=== PATIENT | male | born 1975 | race Caucasian/White ===

== ENCOUNTER 2017-11-28 17:49 | Emergency (ER) | payer MEDICAID, OTHER ==
[2017-11-28 18:12] VITALS: BP 134/76
--- NOTE | 2017-11-28 18:32 | ED ---
GI/ HPI - HPI Summary HPI Summary: 42 yr old with NVD. Onset on Tuesday morning with NVD. He states he ate BBQ Tuesday evening and feels he got food poisoning. He states he had NVD on Tuesday as well, but less, and then today he has had just NV four times today with some associated abdominal cramping. No fever. He has no other complaints other than throat sore. - History of Current Complaint Chief Complaint: [facility] Time Seen by Provider: 11/28/17 18:20 Stated Complaint: VOMITING/DIARRHEA Pain Intensity: 4 - Allergy/Home Medications Allergies/Adverse Reactions: Allergies Allergy/AdvReac Type Severity Reaction Status Date / Time No Known Allergies Allergy Verified 11/28/17 18:09 Home Medications: Home Medications Venlafaxine CAP (NF) [Effexor CAP (NF)] 75 mg PO DAILY 11/28/17 [History Confirmed 11/28/17] buPROPion HCl [Wellbutrin Sr] 150 mg PO DAILY 11/28/17 [History Confirmed ] busPIRone TAB* [Buspar TAB*] 10 mg PO DAILY 11/28/17 [History Confirmed 11/28/17 ] PMH/Surg Hx/FS Hx/Imm Hx Infectious Disease History: No Infectious Disease History: Denies: Traveled Outside the [place] in Last 30 Days - Family History Known Family History: Positive: None - Social History Alcohol Use: Occasionally Substance Use Type: Reports: None Smoking Status (MU): Never Smoked Tobacco Review of Systems Negative: Fever, Chills Positive: Vomiting, Diarrhea, Nausea All Other Systems Reviewed And Are Negative: Yes Physical Exam Triage Information Reviewed: Yes Vital Signs On Initial Exam: Initial Vitals Temp Pulse Resp BP Pulse Ox 98.6 F 72 20 134/76 98 11/28/17 18:06 11/28/17 18:06 11/28/17 18:06 11/28/17 18:06 11/28/17 18:06 Vital Signs Reviewed: Yes Appearance: Positive: No Pain Distress, Well-Nourished Skin: Positive: Warm, Skin Color Reflects Adequate Perfusion Head/Face: Positive: Normal Head/Face Inspection Eyes: Positive: EOMI ENT: Positive: Normal ENT inspection Neck: Positive: Nontender Respiratory/Lung Sounds: Positive: Clear to Auscultation, Breath Sounds Present Cardiovascular: Positive: RRR. Negative: Murmur Abdomen Description: Positive: Nontender, Soft. Negative: CVA Tenderness (R), CVA Tenderness (L) Musculoskeletal: Positive: Strength/ROM Intact Neurological: Positive: Sensory/Motor Intact, Alert, Oriented to Person Place, Time, CN Intact II-III, Normal Gait, Speech Normal Psychiatric: Positive: Normal - Ball[place] Coma Scale Best Eye Response: 4 - Spontaneous Best Motor Response: 6 - Obeys Commands Best Verbal Response: 5 - Oriented Coma Scale Total: 15 Diagnostics - Vital Signs Vital Signs Temp Pulse Resp BP Pulse Ox 11/28/17 18:06 98.6 F 72 20 134/76 98 - Laboratory Lab Statement: Any lab studies that have been ordered have been reviewed, and results considered in the medical decision making process. GIGU Course/Dx - Course Course Of Treatment: The patient was offered zofran here, and was told he would get a prescription for zofran, and instructions but the patient stood up, and stated to me he was not waiting for anything he was going to the ER. - Diagnoses Provider Diagnoses: Nausea vomiting and diarrhea Discharge - Sign-Out/Discharge Documenting (check all that apply): Discharge/Admit/Transfer - Discharge Plan Condition: Good Disposition: ELOPEMENT Referrals: Hyacinth Titus DO [Primary Care Provider] - - Billing Disposition and Condition Condition: GOOD Disposition: ELOP
== END 2017-11-28 18:32 | disposition home or self-care (01) ==
LOC: UCCORT 17:49
DX: R11.2 Nausea with vomiting, unspecified (principal); R19.7 Diarrhea, unspecified
CPT/HCPCS: 99202; G0463